=== PATIENT | male | born 1990 | race Caucasian/White ===

== ENCOUNTER 2017-05-07 07:37 | Emergency (ER) | payer MEDICAID, OTHER ==
[2017-05-07 08:14] VITALS: BP 124/80; PULSE 66; RESP 18; TEMP 98.2; O2SAT 100
== END 2017-05-07 08:30 | disposition home or self-care (01) | DRG 605 ==
LOC: ED 07:37
DX: S01.01XA Laceration without foreign body of scalp, initial encounter (principal); W22.8XXA Striking against or struck by other objects, initial encounter
CPT/HCPCS: 99282

== ENCOUNTER 2017-12-21 22:01 | Emergency (ER) | payer OTHER ==
[2017-12-21 22:22] VITALS: BP 126/78; PULSE 84; RESP 18; TEMP 96.8; O2SAT 99
[2017-12-21] MEDS ORDERED: CYCLOBENZAPRINE 10 MG TAB PO ONE (22:23)
[2017-12-21] MEDS ORDERED: CYCLOBENZAPRINE 10 MG TAB ONE (23:08)
== END 2017-12-21 23:15 | disposition home or self-care (01) | DRG 563 ==
LOC: ED 22:01
DX: S46.211A Strain of muscle, fascia and tendon of other parts of biceps, right arm, initial encounter (principal)
CPT/HCPCS: 99282; A9270-GY